=== PATIENT | female | born 1995 | race Caucasian/White ===

== ENCOUNTER → 2016-05-01 | Outpatient (CLI) | payer OTHER, BC ==
[~2016-05-01] MED LIST: BIRTH CONTROL PO; DICLOFENAC SOD75 MG PO; NORCO 325 MG-7.1 TA1 PO; OMEPRAZOLE20 MG PO; PERCOCET 325 MG1 TA2 PO; TESSALON PERLE100 MG PO; ULTRAM50 M1 PO; ZOFRAN ODT4 MG PO
== END ==
LOC: RAD 13:17
DX: M25.561 Pain in right knee (principal)

== ENCOUNTER → 2016-05-18 | Outpatient (CLI) | payer OTHER, BC | LOC: RAD 14:18 | DX: M25.561 Pain in right knee (principal); S83.511A Sprain of anterior cruciate ligament of right knee, initial encounter; S83.206A Unspecified tear of unspecified meniscus, current injury, right knee, initial encounter; M25.461 Effusion, right knee ==

== ENCOUNTER → 2021-05-29 | Outpatient (CLI) | payer MEDICAID ==
[2021-05-29 13:01] LABS: BASO # 0.02 K/mm3 (0.02-0.10); EOS % 2.6 % (1.0-5.0); HEMATOCRIT 39.7 % (37.0-47.0); HEMOGLOBIN 13.4 g/dL (12.5-16.0); LYMPH# 2.01 K/mm3 (1.50-4.00); MEAN CELL VOLUME 93 fl (78-100); MEAN CORPUSCULAR HEMOGLOBIN 31 pg (27-31); MEAN CORPUSCULAR HGB CONC 34 g/dL (33-37); MEAN PLATELET VOLUME 10.2 fl (7.4-10.4); MONO # 0.55 K/mm3 (0.20-0.80); NEU # 4.97 K/mm3 (1.40-6.50); PLATELET COUNT 233 K/mm3 (130-400); RED BLOOD COUNT 4.27 M/mm3 (4.10-5.30); RED CELL DISTRIBUTION WIDTH 12.8 % (11.5-14.5); WHITE BLOOD COUNT 7.8 K/mm3 (4.8-10.8)
== END ==
LOC: LAB 12:46
PROVIDERS: Nurse Practitioner Family
DX: J02.9 Acute pharyngitis, unspecified (principal); R53.83 Other fatigue